=== PATIENT | female | born 1985 | race Caucasian/White ===

== ENCOUNTER 2021-03-04 04:44 | Day surgery (SDC) | payer OTHER ==
[2021-02-28 16:08] VITALS: BMI 22.1
[2021-03-04 11:24] LABS: BASO % 0.6 % (0-2.0); EOS % 1.3 % (0-4.5); HEMATOCRIT 38.6 % (32.4-45.2); HEMOGLOBIN 13.3 GM/dL (10.7-15.3); LYMPH % 36.1 % (8-40); MCH 32.5 pg (25.7-33.7); MCHC 34.5 g/dl (32.0-36.0); MEAN CELL VOLUME 94.3 fl (80-96); MEAN PLT VOLUME 8.1 fl (7.5-11.1); MONO % 8.3 % (3.8-10.2); NEUT % 53.7 % (42.8-82.8); PLATELET COUNT 273 10^3/uL (134-434); RDW 12.8 % (11.6-15.6); WHITE BLOOD COUNT 7.4 K/mm3 (4.0-10.0)
[2021-03-04] MEDS ORDERED: MIDAZOLAM HCL 2 MG/2 ML SINGLE DOSE VIAL ONE (13:21)
[2021-03-04] MEDS ORDERED: ROCURONIUM BROMIDE 50 MG/5 ML SYRINGE ONE (13:21)
[2021-03-04] MEDS ORDERED: LIDOCAINE HCL/PF 2% SDV 5ML VIAL ONE (13:26)
[2021-03-04] MEDS ORDERED: ONDANSETRON 4 MG/2 ML VIAL IVPUSH PRN (13:35)
[2021-03-04] MEDS ORDERED: oxyCODONE HCL 5 MG TABLET PO PRN (13:35)
[2021-03-04] MEDS ORDERED: LACTATED RINGERS SOLUTION 1,000 ML IV SCH (13:45)
[2021-03-04] MEDS ORDERED: BUPIVACAINE HCL/PF 0.5% (5MG/ML) 10 ML VIAL ONE (14:14)
[2021-03-04] MEDS ORDERED: BUPIVACAINE HCL 0.5% 250 MG/50 ML VIAL NR ONE (15:00)
[2021-03-04] MEDS ORDERED: DEXAMETHASONE SOD PHOSPHATE 4 MG/1 ML VIAL ONE (15:22)
[2021-03-04] MEDS ORDERED: GLYCOPYRROLATE 0.2 MG/1 ML VIAL ONE (15:22)
[2021-03-04] MEDS ORDERED: NEOSTIGMINE METHYLSULFATE 0.5 MG/ML - 10 ML MDV ONE (15:22)
[2021-03-04] MEDS ORDERED: KETOROLAC TROMETHAMINE 30 MG/1 ML VIAL ONE (15:23)
[2021-03-04 20:01] VITALS: BP 120/73; PULSE 89; TEMP 98.2
== END 2021-03-04 20:00 | disposition home or self-care (01) ==
LOC: JASU-SURG 04:44
PROVIDERS: ATTEND Student in an Organized Health Care Education/Training Program
PROC: 0UT74ZZ Resection of Bilateral Fallopian Tubes, Percutaneous Endoscopic Approach (ICD-10-PCS; principal; 2021-03-04 13:30)
DX: Z30.2 Encounter for sterilization (principal)
CPT/HCPCS: 36415; 81025; 85025; 88302-TC; 94760